=== PATIENT | male | born 1965 | race Caucasian/White ===

== ENCOUNTER 2020-02-10 06:54 | Day surgery (SDC) | payer OTHER ==
[~2020-02-10] VITALS: Ht 185.4 cm; Wt 87.6 kg
[~2020-02-10 06:54] MED LIST: ASCO250T2 PO
[2020-02-10] MEDS ORDERED: BUPIVACAINE/PF-EPI 0.5% 1:200K ONE (07:10)
[2020-02-10] MEDS ORDERED: CHLORHEXIDINE 15 ML UDC MM STA (07:12)
[2020-02-10] MEDS ORDERED: LACTATED RINGERS 1,000 ML IV SCH (07:14)
[2020-02-10 07:16] VITALS: BP 112/69
[2020-02-10 07:54] LABS: BASOPHILS # (AUTO) 0.02 x10^3/uL (0-0.1); BASOPHILS % (AUTO) 0 % (0-1); EOSINOPHILS # (AUTO) 0.17 x10^3/uL (0-0.4); EOSINOPHILS % (AUTO) 4 % (1-7); LYMPHOCYTES # (AUTO) 1.76 x10^3/uL (1-3.4); LYMPHOCYTES % (AUTO) 40 % (22-44); MD NO; MEAN CORPUSCULAR HGB CONC 33.5 g/dL (33.2-36.2); MEAN CORPUSCULAR VOLUME 95.6 fL (81-97); MEAN PLATELET VOLUME 7.4 fL (7.4-10.4); MONOCYTES # (AUTO) 0.42 x10^3/uL (0.2-0.8); MONOCYTES % (AUTO) 9 % (2-9); NEUTROPHILS % (AUTO) 47 % (42-75); PLATELET COUNT 229 x10^3/uL (130-400); RED CELL DISTRIBUTION WIDTH 12.6 % (9.4-14.8)
[2020-02-10 07:55] LABS: ALANINE AMINOTRANSFERASE 68 U/L (12-78); ALBUMIN 3.6 g/dL (3.4-5.0); CALCIUM 8.5 mg/dL (8.5-10.1); CREATININE 0.91 mg/dL (0.7-1.3)
[2020-02-10 07:57] LABS: ALKALINE PHOSPHATASE 50 U/L (45-117); BILIRUBIN,TOTAL 0.7 mg/dL (0.2-1.0); TOTAL PROTEIN 7.2 g/dL (6.4-8.2)
[2020-02-10 08:04] LABS: ANION GAP 6 mmol/L (5-15); CHLORIDE 110 mmol/L (98-107)
[2020-02-10] MEDS ORDERED: CEFAZOLIN 1,000 MG ONE (10:07)
[2020-02-10] MEDS ORDERED: SUCCINYLCHOLINE 20 MG/ML, 10ML ONE (10:07)
[2020-02-10] MEDS ORDERED: ROCURONIUM 10 MG/ML,10ML ONE (10:07)
[2020-02-10] MEDS ORDERED: PROPOFOL 10 MG/ML, 20ML ONE (10:07)
[2020-02-10] MEDS ORDERED: MIDAZOLAM 1 MG/ML, 2ML ONE (10:07)
[2020-02-10] MEDS ORDERED: MEPERIDINE/PF 50 MG/ML ONE (10:07)
[2020-02-10] MEDS ORDERED: FENTANYL PF 100 MCG/2ML ONE (10:07)
[2020-02-10] MEDS ORDERED: DEXAMETHASONE 4 MG/ML, 1ML ONE (10:07)
[2020-02-10] MEDS ORDERED: SUGAMMADEX 200 MG/2 ML IVPush ONE (10:07)
[2020-02-10] MEDS ORDERED: ONDANSETRON 2MG/ML, 2ML ONE ×2 (10:07→12:59)
[2020-02-10] MEDS ORDERED: ALBUTEROL SULFATE 2.5 MG/3 ML NPPB PRN (11:00)
[2020-02-10] MEDS ORDERED: PROMETHAZINE 25 MG/ML, 1ML IV PRN (11:00)
[2020-02-10] MEDS ORDERED: KETOROLAC 30 MG/1 ML IV PRN (11:00)
[2020-02-10] MEDS ORDERED: HYDROmorphone 1 MG/ML, 1ML INJ IV PRN (11:00)
[2020-02-10] MEDS ORDERED: FENTANYL PF 100 MCG/2ML IV PRN (11:00)
[2020-02-10] MEDS ORDERED: LABETALOL 5MG/ML, 20ML IV PRN (11:00)
[2020-02-10] MEDS ORDERED: DIAZEPAM 5 MG/ML, 2ML IV PRN ×2 (11:00)
[2020-02-10] MEDS ORDERED: ONDANSETRON 2MG/ML, 2ML IVPush PRN (11:00)
[2020-02-10] MEDS ORDERED: MEPERIDINE/PF 25MG/0.5ML IVPush PRN (11:00)
[2020-02-10] MEDS ORDERED: OXYcodone 5 MG/5 ML ORAL.SOL UDC PO PRN (11:00)
[2020-02-10] MEDS ORDERED: METOCLOPRAMIDE 5 MG/ML, 2ML IV PRN (11:00)
[2020-02-10] MEDS ORDERED: hydrALAzine 20 MG/ML, 1ML IV PRN (11:00)
[2020-02-10] MEDS ORDERED: PROMETHAZINE 25 MG/ML, 1ML ONE (12:52)
[2020-02-10] MEDS ORDERED: KETOROLAC 30 MG/1 ML ONE (13:03)
== END 2020-02-10 15:25 | disposition home or self-care (01) ==
LOC: OUT 06:54
PROVIDERS: ATTEND Surgery
DX: C43.59 Malignant melanoma of other part of trunk (principal); Z79.899 Other long term (current) drug therapy; Z98.52 Vasectomy status; Z98.890 Other specified postprocedural states; Z80.8 Family history of malignant neoplasm of other organs or systems
CPT/HCPCS: 14000; 21935; 36415; 38525; 80053; 85025; 88307; 93005; J0330; J0690; J1100; J1885; J2175; J2250; J2405; J2550; J2704; J3010; J7120

== ENCOUNTER 2020-02-10 11:00 | Outpatient (CLI) | payer OTHER ==
[~2020-02-10 11:00] MED LIST changes: +FENTANYL PF 100 MCG/2ML ONE; +MIDAZOLAM 1 MG/ML, 2ML ONE
[2020-02-10] MEDS ORDERED: MEPERIDINE/PF 50 MG/ML ONE (11:59)
[2020-02-10] MEDS ORDERED: PROMETHAZINE 25 MG/ML, 1ML ONE (12:43)
== END 2020-02-10 23:59 | disposition home or self-care (01) ==
LOC: RAD 11:00
PROVIDERS: ATTEND Surgery
DX: C43.59 Malignant melanoma of other part of trunk (principal)
CPT/HCPCS: 78195; A9541; J2175; J2250; J3010